=== PATIENT | male | born 2000 | race Caucasian/White ===

== ENCOUNTER 2021-06-11 13:46 | Emergency (ER) | payer OTHER, SELFPAY ==
--- NOTE | ~2021-06-11 | XR_ITS ---
EXAMINATION: RIGHT HAND AND WRIST X-RAY CLINICAL INFORMATION: Trauma COMPARISON: None TECHNIQUE: 3 views of the right hand FINDINGS: There is a minimally displaced fracture of the distal scaphoid bone. No other fracture is seen. Joint spaces are normal. Soft tissues are normal. XR/XR hand wrist RT IMPRESSION: Minimally displaced fracture of the distal scaphoid bone.
[2021-06-11 14:01] VITALS: BP 128/60; PULSE 68; RESP 14; TEMP 36.8; O2SAT 100; BMI 23.5
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
[2021-06-11] MEDS: Diphth,Pertus(ACell),Tet Adult 0.5 ML SYRINGE IM (15:15)
== END 2021-06-11 15:23 | disposition home or self-care (01) ==
PROVIDERS: Emergency Provider Emergency Medicine Emergency Medical Services
DX: S62.011A Displaced fracture of distal pole of navicular [scaphoid] bone of right wrist, initial encounter for closed fracture (principal); V00.131A Fall from skateboard, initial encounter; Y93.51 Activity, roller skating (inline) and skateboarding; Y92.9 Unspecified place or not applicable; Y99.9 Unspecified external cause status; T23.152A Burn of first degree of left palm, initial encounter; T23.151A Burn of first degree of right palm, initial encounter; T31.0 Burns involving less than 10% of body surface; X15.0XXA Contact with hot stove (kitchen), initial encounter; Y93.G3 Activity, cooking and baking; Y92.010 Kitchen of single-family (private) house as the place of occurrence of the external cause
CPT/HCPCS: 29125; 73110; 73130; 90471; 90715; 99283; 99284

== ENCOUNTER 2021-06-19 06:14 | Outpatient (REF) | payer OTHER, SELFPAY ==
--- NOTE | ~2021-06-19 | XR_ITS ---
EXAMINATION: XR RIGHT WRIST WITH SCAPHOID CLINICAL INFORMATION: Pain in right hand. COMPARISON: None. TECHNIQUE: 4 views. FINDINGS: There is no visible acute fracture, dislocation or subluxation. No bony erosive changes, loose bodies or soft tissue swelling seen. XR/XR wrist RT w scaphoid IMPRESSION: Unremarkable right hand and wrist exam. Unremarkable scaphoid bone.
== END 2021-06-19 06:15 | disposition home or self-care (01) ==
LOC: HO.HOSX 06:14
PROVIDERS: Visit Provider Physician Assistant
DX: S62.011A Displaced fracture of distal pole of navicular [scaphoid] bone of right wrist, initial encounter for closed fracture (principal)
CPT/HCPCS: 73110; 99202

== ENCOUNTER 2021-07-11 13:41 | Outpatient (REF) | payer OTHER, SELFPAY ==
--- NOTE | ~2021-07-11 | XR_ITS ---
EXAMINATION: XR RIGHT WRIST CLINICAL INFORMATION: Pain in right hand. COMPARISON: 06/19/2021 TECHNIQUE: 4 views of the right wrist. FINDINGS: There is a fracture of the lateral navicular which is much more obvious on the current study than the prior exam. It is only minimally displaced. No other fractures are seen. XR/XR wrist RT w scaphoid IMPRESSION: Navicular fracture.
== END 2021-07-11 13:42 | disposition home or self-care (01) ==
LOC: HO.HOSX 13:41
PROVIDERS: PCP Internal Medicine; Visit Provider Physician Assistant
DX: S62.001D Unspecified fracture of navicular [scaphoid] bone of right wrist, subsequent encounter for fracture with routine healing (principal)
CPT/HCPCS: 73110; 99212

== ENCOUNTER 2021-08-23 07:28 | Outpatient (REF) | payer OTHER, SELFPAY ==
--- NOTE | ~2021-08-23 | XR_ITS ---
EXAMINATION: XR WRIST, RIGHT CLINICAL INFORMATION: Right hand pain. COMPARISON: 07/11/2021 and 06/19/2021. TECHNIQUE: 4 views of right wrist. FINDINGS: There is again noted to be a fracture of the distal lateral aspect of the navicula with approximately 1 to 2 mm of lateral displacement of the smaller distal fracture fragment. No definite callus formation is appreciated. No dislocation of the wrist is seen. XR/XR wrist RT w scaphoid IMPRESSION: Mildly displaced distal lateral navicular fracture as described.
== END 2021-08-23 07:29 | disposition home or self-care (01) ==
LOC: HO.HOSX 07:28
PROVIDERS: Visit Provider Physician Assistant
DX: S62.001D Unspecified fracture of navicular [scaphoid] bone of right wrist, subsequent encounter for fracture with routine healing (principal)
CPT/HCPCS: 73110; 99212